=== PATIENT | female | born 2000 | race Hispanic/Latino ===

== ENCOUNTER 2022-04-20 10:17 | Inpatient (IN) | payer BC ==
[~2022-04-20] VITALS: Ht 162.6 cm; Wt 88.0 kg
[~2022-04-20 10:17] MED LIST: SODIUM CHLORIDE 0.9% 1000ML 1,000 ML IV SCH; SODIUM CHLORIDE FLUSH 10 ML SYR IV PRN
[2022-04-20] MEDS ORDERED: ONDANSETRON HCL INJ 2MG/ML 2ML 2 MG/ML VIAL IV STA (10:25)
[2022-04-20 11:35] LABS: BASOPHILS % 0.4 % (0.0-1.0); EOSINOPHILS % 0.6 % (0.0-6.0); HEMATOCRIT 35.9 % (34.2-44.1); HEMOGLOBIN 11.6 g/dL (12.0-16.0); MEAN CORPUSCULAR HEMOGLOBIN 29.1 pg (28-32); MEAN CORPUSCULAR HGB CONC 32.3 g/dL (31-35); MEAN CORPUSCULAR VOLUME 90.2 fL (81-99); MONOCYTES # (AUTO) 0.5 (0.2-0.8); MONOCYTES % 7.1 % (4.4-11.3); NEUTROPHILS # (AUTO) 4.6 (2.1-6.9); NEUTROPHILS % 63.6 % (38.7-80.0); PLATELET COUNT 299 x10e3/uL (140-360); RED BLOOD COUNT 3.98 x10e6/uL (3.6-5.1)
[2022-04-20 11:48] LABS: INR 0.99
[2022-04-20 11:49] LABS: PARTIAL THROMBOPLASTIN TIME 29.3 seconds (23.8-35.5)
[2022-04-20 11:57] LABS: ANION GAP 14.1 mmol/L (8-16); CALCIUM 8.9 mg/dL (8.4-10.2); CREATININE, SERUM 0.76 mg/dL (0.57-1.11); POTASSIUM 4.1 mmol/L (3.5-5.1)
[2022-04-20 11:58] LABS: ALBUMIN 3.7 g/dL (3.5-5.0); ALBUMIN/GLOBULIN RATIO 0.9 (0.8-2.0)
[2022-04-20 12:08] LABS: LIPASE 16 U/L (8-78)
[2022-04-20 12:46] LABS: AMPHETAMINES SCREEN,URINE NEGATIVE (NEGATIVE); BENZODIAZEPINES SCREEN,URINE NEGATIVE (NEGATIVE); PHENCYCLIDINE SCREEN,URINE NEGATIVE (NEGATIVE)
[2022-04-20 12:47] LABS: CLARITY,URINE CLEAR (CLEAR); COLOR,URINE YELLOW (YELLOW); KETONES,URINE TRACE (NEGATIVE); LEUKOCYTE ESTERASE ,URINE NEGATIVE (NEGATIVE); NITRITE,URINE NEGATIVE (NEGATIVE); PROTEIN,URINE DIPSTICK TRACE (NEGATIVE)
[2022-04-20 13:03] LABS: BACTERIA,URINE FEW /HPF; EPITHELIAL CELLS,URINE MANY /LPF; RBC,URINE 0-5 /HPF (0-5)
[2022-04-20] MEDS ORDERED: Morphine 4mg INJECTION 4 MG/ML INJ IV PRN (13:45)
[2022-04-20] MEDS: SODIUM CHLORIDE 0.9% 1000ML 1,000 ML IV SCH (13:46)
[2022-04-20] MEDS: KETOROLAC TROMETHAMINE 30 MG/ML VIAL IV STA ×2 (13:46→13:55)
[2022-04-20 16:05] VITALS: BP 102/78
[2022-04-20 16:08] VITALS: BP 102/78
[2022-04-20 16:12] VITALS: BP 102/78
[2022-04-20] MEDS: ONDANSETRON HCL INJ 2MG/ML 2ML 2 MG/ML VIAL IV PRN (16:54)
[2022-04-20 20:00] VITALS: BP 111/78
[2022-04-20] MEDS ORDERED: GADOBENATE DIMEGLUMINE 1 ML IV ONE (23:49)
[2022-04-21] VITALS (8 sets, daily range): BP systolic 95–114; BP diastolic 50–77
[2022-04-21 06:01] LABS: BASOPHILS % 0.3 % (0.0-1.0); EOSINOPHILS # (AUTO) 0.1 (0.0-0.4); EOSINOPHILS % 0.7 % (0.0-6.0); HEMOGLOBIN 11.1 g/dL (12.0-16.0); LYMPHOCYTES # (AUTO) 2.2 (1.0-3.2); LYMPHOCYTES % 23.2 % (18.0-39.1); MEAN CORPUSCULAR HEMOGLOBIN 28.6 pg (28-32); MEAN CORPUSCULAR HGB CONC 31.7 g/dL (31-35); MEAN CORPUSCULAR VOLUME 90.2 fL (81-99); MONOCYTES # (AUTO) 0.8 (0.2-0.8); MONOCYTES % 8.5 % (4.4-11.3); NEUTROPHILS # (AUTO) 6.3 (2.1-6.9); NEUTROPHILS % 66.9 % (38.7-80.0); PLATELET COUNT 258 x10e3/uL (140-360); RED BLOOD COUNT 3.88 x10e6/uL (3.6-5.1)
[2022-04-21] MEDS: SODIUM CHLORIDE 0.9% 1000ML 1,000 ML IV SCH ×4 (06:30→22:17)
[2022-04-21 07:26] LABS: CHOL/HDL RATIO 2.3 (3.0-3.6)
[2022-04-21] MEDS: ONDANSETRON HCL INJ 2MG/ML 2ML 2 MG/ML VIAL IV PRN ×2 (09:00→13:42)
[2022-04-21] MEDS: FAMOTIDINE 20 MG/2 ML VIAL IV SCH ×2 (09:20→16:30)
[2022-04-21 10:23] LABS: ALBUMIN 3.2 g/dL (3.5-5.0); ALBUMIN/GLOBULIN RATIO 0.9 (0.8-2.0); ANION GAP 13.8 mmol/L (8-16); CALCIUM 8.7 mg/dL (8.4-10.2); CREATININE, SERUM 0.62 mg/dL (0.57-1.11); POTASSIUM 3.8 mmol/L (3.5-5.1)
[2022-04-21] MEDS ORDERED: ONDANSETRON HCL INJ 2MG/ML 2ML 2 MG/ML VIAL ONE (11:36)
[2022-04-21] MEDS ORDERED: LIDOCAINE HCL 2% LOCAL INJ 5 ML SDV VIAL INJ ONE (11:36)
[2022-04-21] MEDS ORDERED: ATROPINE SULFATE 1 MG/ML VIAL ONE (11:36)
[2022-04-21] MEDS ORDERED: PROPOFOL IV EMULSION 10 MG/ML 20 ML VIAL ONE (11:36)
[2022-04-21] MEDS ORDERED: ROCURONIUM BROMIDE 10 MG/ML 5ML VIAL IV ONE (11:36)
[2022-04-21] MEDS ORDERED: SEVOFLURANE INHAL SOLN 250 ML PEN BTL ONE (11:36)
[2022-04-21] MEDS ORDERED: NEOSTIGMINE 1 MG/ML 10ML VIAL ONE (11:36)
[2022-04-21] MEDS ORDERED: DEXAMETHASONE SOD PHOS INJ 4 MG/ML SDV ONE (11:36)
[2022-04-21] MEDS ORDERED: POVIDONE IODINE 0.05% 0.05 % ML PO ONE (11:36)
[2022-04-21] MEDS ORDERED: MIDAZOLAM HCL 2 MG/2 ML VIAL ONE (13:10)
[2022-04-21] MEDS ORDERED: FENTANYL CITRATE/PF 100MCG/2 ML INJ ONE ×2 (13:10→19:50)
[2022-04-21] MEDS ORDERED: BUPIVACAINE HC 0.75% PF 10ML VIAL INJ ONE (18:16)
[2022-04-21] MEDS ORDERED: KETOROLAC TROMETHAMINE 30 MG/ML VIAL IV PRN (19:30)
[2022-04-22] VITALS: BP 107/64
[2022-04-22 04:30] VITALS: BP 110/65
[2022-04-22 06:15] LABS: BASOPHILS % 0.1 % (0.0-1.0); HEMATOCRIT 34.3 % (34.2-44.1); HEMOGLOBIN 11.1 g/dL (12.0-16.0); LYMPHOCYTES # (AUTO) 1.3 (1.0-3.2); LYMPHOCYTES % 15.1 % (18.0-39.1); MEAN CORPUSCULAR HGB CONC 32.4 g/dL (31-35); MEAN CORPUSCULAR VOLUME 89.6 fL (81-99); MONOCYTES # (AUTO) 0.4 (0.2-0.8); MONOCYTES % 4.7 % (4.4-11.3); NEUTROPHILS % 79.9 % (38.7-80.0); PLATELET COUNT 298 x10e3/uL (140-360); RED BLOOD COUNT 3.83 x10e6/uL (3.6-5.1); RED CELL DISTRIBUTION WIDTH 12.7 % (11.7-14.4)
[2022-04-22] MEDS: SODIUM CHLORIDE 0.9% 1000ML 1,000 ML IV SCH ×2 (06:17→13:45)
[2022-04-22 06:43] LABS: ALBUMIN 3.3 g/dL (3.5-5.0); ALBUMIN/GLOBULIN RATIO 0.9 (0.8-2.0); ANION GAP 14.1 mmol/L (8-16); CALCIUM 8.6 mg/dL (8.4-10.2); CREATININE, SERUM 0.6 mg/dL (0.57-1.11); POTASSIUM 4.1 mmol/L (3.5-5.1)
[2022-04-22] MEDS: HYDROCODONE/APAP 7.5MG-325MG 1 EA TAB PO PRN ×2 (07:11→11:27)
[2022-04-22 08:14] VITALS: BP 109/64
[2022-04-22 09:06] VITALS: BP 109/64
[2022-04-22] MEDS: FAMOTIDINE 20 MG/2 ML VIAL IV SCH (09:27)
[2022-04-22 10:45] VITALS: BP 101/71
[2022-04-22] MEDS ORDERED: LEVOFLOXACIN250 MG PO (14:33)
[2022-04-22 15:15] VITALS: BP 97/70
[2022-04-22] MEDS ORDERED: FAMOTIDINE 20 MG TAB PO SCH (16:30)
== END 2022-04-22 15:20 | disposition home or self-care (01) | DRG 418 ==
LOC: ER 10:20 → ERHOLD 13:31 → MED/SURG 15:37
PROVIDERS: ADMIT Internal Medicine; ATTEND Internal Medicine
PROC: 0FT44ZZ Resection of Gallbladder, Percutaneous Endoscopic Approach (ICD-10-PCS; principal; 2022-04-21 18:13)
DX: K80.00 Calculus of gallbladder with acute cholecystitis without obstruction (principal); N39.0 Urinary tract infection, site not specified; E66.9 Obesity, unspecified; Z68.33 Body mass index [BMI] 33.0-33.9, adult; Z20.822 Contact with and (suspected) exposure to COVID-19
CPT/HCPCS: 36415; 74183; 76705; 80053; 80061; 80307; 81001; 83036; 83690; 84702; 85025; 85610; 85730; 88304; 99284; C1713; C1766; J0461; J1100; J2001; J2250; J2270; J2405; J2543; J2710; J3010; J7030